=== PATIENT | female | born 1955 | race Two or more races ===

== ENCOUNTER 2017-04-15 10:12 | Outpatient (CLI) | payer MEDICARE, BC | END 2017-04-15 23:59 | disposition home or self-care (01) | LOC: WOU 10:12 | PROVIDERS: ATTEND Podiatrist Foot & Ankle Surgery | DX: I87.332 Chronic venous hypertension (idiopathic) with ulcer and inflammation of left lower extremity (principal); I87.2 Venous insufficiency (chronic) (peripheral); L97.323 Non-pressure chronic ulcer of left ankle with necrosis of muscle; R60.0 Localized edema; N18.6 End stage renal disease; Z99.2 Dependence on renal dialysis; J45.909 Unspecified asthma, uncomplicated; Z79.899 Other long term (current) drug therapy; M79.662 Pain in left lower leg | CPT/HCPCS: 11043; A6402 ==

== ENCOUNTER 2017-04-22 10:08 | Outpatient (CLI) | payer MEDICARE, BC | END 2017-04-22 23:59 | disposition home or self-care (01) | LOC: WOU 10:08 | PROVIDERS: ATTEND Podiatrist Foot & Ankle Surgery | DX: I87.332 Chronic venous hypertension (idiopathic) with ulcer and inflammation of left lower extremity (principal); L97.323 Non-pressure chronic ulcer of left ankle with necrosis of muscle; R60.0 Localized edema; N18.6 End stage renal disease; Z99.2 Dependence on renal dialysis; Z88.1 Allergy status to other antibiotic agents | CPT/HCPCS: 11043; A6402; 11042 ==

== ENCOUNTER 2017-04-29 10:30 | Outpatient (CLI) | payer MEDICARE, BC | END 2017-04-29 23:59 | disposition home or self-care (01) | LOC: WOU 10:30 | PROVIDERS: ATTEND Podiatrist Foot & Ankle Surgery | DX: I87.332 Chronic venous hypertension (idiopathic) with ulcer and inflammation of left lower extremity (principal); L97.321 Non-pressure chronic ulcer of left ankle limited to breakdown of skin; R60.0 Localized edema; M79.662 Pain in left lower leg; N18.6 End stage renal disease; Z99.2 Dependence on renal dialysis | CPT/HCPCS: 11042; A6402 ==

== ENCOUNTER 2017-05-06 10:10 | Outpatient (CLI) | payer MEDICARE, BC ==
[2017-05-06] MEDS ORDERED: HYDR-3024 PO (11:42)
[2017-05-06] MEDS ORDERED: MONT10TA22 PO (11:42)
[2017-05-06] MEDS ORDERED: CALC0.5C2 PO (11:42)
[2017-05-06] MEDS ORDERED: FOLI0.8T23 PO (11:42)
[2017-05-06] MEDS ORDERED: FLUT1DIS3 IH (11:42)
[2017-05-06] MEDS ORDERED: CARV25TA2 PO (11:42)
[2017-05-06] MEDS ORDERED: COMBIVENT INH (11:42)
[2017-05-06] MEDS ORDERED: SEVE800T8 PO (11:43)
== END 2017-05-06 23:59 | disposition home or self-care (01) ==
LOC: WOU 10:10
PROVIDERS: ATTEND Podiatrist Foot & Ankle Surgery
DX: I87.332 Chronic venous hypertension (idiopathic) with ulcer and inflammation of left lower extremity (principal); L97.321 Non-pressure chronic ulcer of left ankle limited to breakdown of skin; N18.6 End stage renal disease; Z99.2 Dependence on renal dialysis; R11.0 Nausea; R60.0 Localized edema; M79.662 Pain in left lower leg; R00.0 Tachycardia, unspecified
CPT/HCPCS: A6402; G0463

== ENCOUNTER 2017-05-06 10:50 | Inpatient (IN) | payer MEDICARE, BC ==
[2017-05-06] VITALS: BP 106/70
[~2017-05-06] VITALS: Ht 160 cm; Wt 80.7 kg
--- NOTE | 2017-05-06 11:20 | NUR ---
PATIENT BIB , C/O FEVER AND LEFT FOOT SWELLING. PATIENT IS A/OX 4. BREATHING EVEN AND UNLABORED. NO SOB. VITALS STABLE. SAFETY AND COMFORT MEASURES IN PLACE. AWAITING MD ORDERS.
[2017-05-06] MEDS ORDERED: CEFTRIAXONE 1GM BAG (ER ONLY) 1 GM/50 ML PIGGYBACK IV ONE (11:30)
[2017-05-06] MEDS ORDERED: VANCOMYCIN 1 GM in IV D5W 250 ML IV ONE (11:30)
[2017-05-06] MEDS ORDERED: ACETAMINOPHEN ES 500 MG TABLET PO ONE (11:30)
[2017-05-06] MEDS ORDERED: IV NS 0.9% 1,000 ML BAG IV ONE ×2 (11:30→13:00)
[2017-05-06] MEDS ORDERED: ACETAMINOPHEN ES 500 MG TABLET ONE (11:35)
[2017-05-06] MEDS ORDERED: CALC0.5C2 PO (11:42)
[2017-05-06] MEDS ORDERED: FLUT1DIS3 IH (11:42)
[2017-05-06] MEDS ORDERED: COMBIVENT INH (11:42)
[2017-05-06] MEDS ORDERED: CARV25TA2 PO (11:42)
[2017-05-06] MEDS ORDERED: MONT10TA22 PO (11:42)
[2017-05-06] MEDS ORDERED: HYDR-3024 PO (11:42)
[2017-05-06] MEDS ORDERED: FOLI0.8T23 PO (11:42)
[2017-05-06] MEDS ORDERED: SEVE800T8 PO (11:43)
--- NOTE | 2017-05-06 12:10 | NUR ---
NEW IV STARTED ON RIGHT HAND, 20 G. BLOOD DRAWN AND SENT TO LAB.
[2017-05-06] MEDS ORDERED: CEFTRIAXONE 1GM BAG (ER ONLY) 50 ML IV ONE (12:22)
[2017-05-06 12:31] LABS: BASOPHILS # (AUTO) 0.1 /CMM (0.0-0.2); BASOPHILS % (AUTO) 0.4 % (0.0-2.0); EOSINOPHILS # (AUTO) 0.2 /CMM (0.0-0.7); HEMATOCRIT 29 % (33-45); HEMOGLOBIN 9.7 g/dL (11.5-14.8); LYMPHOCYTES # (AUTO) 0.5 /CMM (0.8-4.8); MEAN CORPUSCULAR HEMOGLOBIN 33 PG (26.0-33.0); MEAN CORPUSCULAR HGB CONC 34 g/dl (31.0-36.0); MEAN CORPUSCULAR VOLUME 100 fL (82-100); MONOCYTES # (AUTO) 1.3 /CMM (0.1-1.30); MONOCYTES % (AUTO) 8.7 % (2.0-12.0); NEUTROPHILS # (AUTO) 13.2 /CMM (1.8-8.9); NEUTROPHILS % (AUTO) 86.9 % (43.0-81.0); PLATELET COUNT (AUTO) 375 /CMM (150-450); RDW COEFFICIENT OF VARIATION 16.8 (11.5-15.0); RED BLOOD CELL COUNT(AUTO) 2.91 MIL/uL (4.0-5.2); WHITE BLOOD COUNT (AUTO) 15.3 K/uL (4.3-11.0)
[2017-05-06 12:45] LABS: INR 1.02 (0.87-1.13); PROTHROMBIN TIME 10.6 SECS (9.5-12.7); SODIUM SERUM 131 mmol/L (136-145)
[2017-05-06 12:46] LABS: CARBON DIOXIDE 24 mmol/L (21-32); CHLORIDE 95 mmol/L (98-107); GLUCOSE 127 mg/dL (74-106); POTASSIUM 2.8 mmol/L (3.5-5.1)
--- NOTE | 2017-05-06 12:47 | NUR ---
PATIENT DOES NOT PRODUCE URINE. MADE AWARE, OKAY TO CANCEL UA.
[2017-05-06 12:49] LABS: TROPONIN I < 0.017 ng/mL (0.00-0.056)
[2017-05-06 12:52] LABS: CALCIUM, SERUM 8.8 mg/dL (8.5-10.1)
[2017-05-06 12:53] LABS: ALANINE AMINOTRANSFERASE 24 U/L (12-78); ALBUMIN 2.6 g/dL (3.4-5.0); ALKALINE PHOSPHATASE 68 U/L (46-116); ASPARTATE AMINOTRANSFERASE 21 U/L (15-37); BILIRUBIN,DIRECT 0.1 mg/dL (0.0-0.2); BILIRUBIN,TOTAL 0.4 mg/dL (0.2-1.0); TOTAL PROTEIN, SERUM 6.3 g/dL (6.4-8.2)
[2017-05-06 12:54] LABS: UREA NITROGEN, BLOOD 95 mg/dL (7-18)
[2017-05-06] MEDS ORDERED: POTASSIUM CHLORIDE 20 MEQ TAB.PRT.SR PO ONE ×3 (13:16→13:30)
--- NOTE | 2017-05-06 13:20 | NUR ---
PER DR. FULTON, DO NOT ADMINISTER 2ND LITER OF NS.
--- NOTE | 2017-05-06 13:31 | NUR ---
PER DR. VALDIVIA, DO NOT ADMINISTERE SECOND ORDER OF POTASSIUM, DUPLICATE ORDER.
--- NOTE | 2017-05-06 13:40 | NUR ---
REPORT GIVEN TO BERT GUERRERO FOR ADMISSION. PATIENT TO BE ADMITTED TO ROOM 102.
--- NOTE | 2017-05-06 13:59 | NUR ---
PATIENT TRANSPORTED TO 102 VIA ACLS PROTOCOL.
[2017-05-06 14:00] VITALS: BP 111/70
--- NOTE | 2017-05-06 15:00 | NUR ---
RN NOTE RECEIVED PT ON BED, AOX4, CO HEADACHE, PT TACHYCARDIC, HR 111 BPM, BP 111/70 MMHG NO SOB, PT CLAIMS TO HAVE ASTHMA, IV ON R HAND, 20 G INTACT, PATENT, PT AMBULATORY WITH ASSIST, L LEG SWELLING AND LEFT ANKLE ULCER NOTED. LEFT LOWER QUADRANT PERITONEAL DIALYSIS ACCESS LINE NOTED UNDER THE DRESSING. DR ECHOLS CALLED FOR ADMITTING ORDERS. WILL MONITOR PT CLOSELY.
[2017-05-06 16:00] VITALS: BP 106/87
[2017-05-06] MEDS ORDERED: Z GUARD REMEDY 2 OZ OINT TP PRN (17:30)
[2017-05-06] MEDS ORDERED: ZOLPIDEM TARTRATE 5 MG TABLET PO PRN (17:30)
[2017-05-06] MEDS ORDERED: ONDANSETRON HCL/PF 4 MG/2 ML VIAL IVP PRN (17:30)
[2017-05-06] MEDS ORDERED: MAGNESIUM HYDROXIDE 30 ML UDC PO PRN (17:30)
[2017-05-06] MEDS ORDERED: EPOETIN ALFA (40,000 UNIT) 40,000 UNIT/ML VIAL SQ ONE (17:30)
[2017-05-06] MEDS: SEVELAMER CARBONATE 800 MG TABLET PO SCH (18:21)
[2017-05-06] MEDS: CALCITRIOL 0.25 MCG CAPSULE PO SCH (18:30)
[2017-05-06] MEDS ORDERED: FEE PK DOSING 1 MIN EA MC ONE (18:42)
--- NOTE | 2017-05-06 19:51 | NUR ---
RN NOTE RECEIVED PT ON BED, AOX4, PT TACHYCARDIC, HR 120 BPM, BP 132/70 MMHG NO SOB, PT CLAIMS TO HAVE ASTHMA, IV ON R HAND, 20 G INTACT, PATENT, PT AMBULATORY WITH ASSIST, L LEG SWELLING AND LEFT ANKLE ULCER NOTED. LEFT LOWER QUADRANT PERITONEAL DIALYSIS ACCESS LINE CONNECTED DIALYSIS MACHINE, WITH SPECIMEN FOR COLLECTION IN AM.
[2017-05-06 20:00] VITALS: BP_SYST 118; BP_SYST 137; BP_DIAS 74; BP_DIAS 88
[2017-05-06] MEDS ORDERED: EPOETIN ALFA (20,000 UNIT) 20,000 UNIT/ML VIAL SQ ONE (20:00)
[2017-05-06] MEDS: PIPERACILLIN /TAZOBACTAM 2.25 G in IV D5W 50 ML IV SCH (20:53)
[2017-05-06] MEDS: CARVEDILOL 12.5 MG TABLET PO SCH (20:55)
[2017-05-06] MEDS: MONTELUKAST SODIUM (10MG) 10 MG TABLET PO SCH (21:06)
[2017-05-06] MEDS: hydrOXYzine 10 MG TABLET PO PRN (21:06)
[2017-05-07] VITALS: BP 106/70
[2017-05-07] MEDS: ACETAMINOPHEN 325 MG TABLET PO PRN (03:50)
[2017-05-07 04:00] VITALS: BP 111/69
[2017-05-07] MEDS: PIPERACILLIN /TAZOBACTAM 2.25 G in IV D5W 50 ML IV SCH ×3 (05:38→21:16)
--- NOTE | 2017-05-07 06:25 | NUR ---
RN CLOSING NOTE ENDORSED PT ON BED, AOX4, PT TACHYCARDIC, HR 108 BPM, BP 111/69MMHG NO SOB, PT CLAIMS TO HAVE ASTHMA, IV ON R HAND, 20 G INTACT, PATENT, PT AMBULATORY WITH ASSIST, L LEG SWELLING AND LEFT ANKLE ULCER NOTED. LEFT LOWER QUADRANT PERITONEAL DIALYSIS ACCESS LINE , 4L DRAINED OUT BY SELF, WITH SPECIMEN FOR COLLECTION IN AM.
--- NOTE | 2017-05-07 07:05 | NUR ---
RN INITIAL NOTE PATIENT RESTING IN BED COMFORTABLY. EASILY AROUSED. ABLE TO MAKE NEEDS KNOWN. NO S/S OF PAIN OR DISCOMFORT. RESPIRATIONS ARE EVEN AND UNLABORED. NO S/S OF RESPIRATORY DISTRESS OR SOB. SATING WELL ON 2L NASAL CANULA. IV SITE, FLUSHED AND PATENT. SKIN IS WARM AND DRY TO TOUCH. SAFETY PRECAUTIONS IMPLEMENTED, BED IN LOCKED LOW POSITION WITH TWO SIDE RAILS UP. ISOLATION PRECAUTIONS OBSERVED. WILL MONITOR CLOSELY.
[2017-05-07 07:54] LABS: BASOPHILS % (AUTO) 0.3 % (0.0-2.0); EOSINOPHILS # (AUTO) 0.1 /CMM (0.0-0.7); EOSINOPHILS % (AUTO) 0.7 % (0.0-6.0); HEMATOCRIT 26 % (33-45); HEMOGLOBIN 8.9 g/dL (11.5-14.8); LYMPHOCYTES # (AUTO) 0.7 /CMM (0.8-4.8); LYMPHOCYTES % (AUTO) 5.9 % (20.0-44.0); MEAN CORPUSCULAR HEMOGLOBIN 34 PG (26.0-33.0); MEAN CORPUSCULAR HGB CONC 34 g/dl (31.0-36.0); MEAN CORPUSCULAR VOLUME 99 fL (82-100); MONOCYTES # (AUTO) 1.1 /CMM (0.1-1.30); MONOCYTES % (AUTO) 9.2 % (2.0-12.0); NEUTROPHILS # (AUTO) 10.1 /CMM (1.8-8.9); NEUTROPHILS % (AUTO) 83.9 % (43.0-81.0); PLATELET COUNT (AUTO) 294 /CMM (150-450); RDW COEFFICIENT OF VARIATION 17.5 (11.5-15.0); RED BLOOD CELL COUNT(AUTO) 2.62 MIL/uL (4.0-5.2)
[2017-05-07 08:00] VITALS: BP 97/63
[2017-05-07 08:21] LABS: CALCIUM, SERUM 8.5 mg/dL (8.5-10.1); MAGNESIUM 1.6 mg/dL (1.8-2.4); PHOSPHORUS 4.9 mg/dL (2.5-4.9); POTASSIUM 3.3 mmol/L (3.5-5.1)
[2017-05-07 08:26] LABS: CREATININE 9.1 mg/dL (0.6-1.3)
[2017-05-07] MEDS: SEVELAMER CARBONATE 800 MG TABLET PO SCH ×3 (08:31→17:15)
[2017-05-07] MEDS: CALCITRIOL 0.25 MCG CAPSULE PO SCH (08:31)
[2017-05-07] MEDS: VIT B CMPLX 3/FA/VIT C/BIOTIN 1 TAB TABLET PO SCH (08:32)
[2017-05-07] MEDS: CARVEDILOL 12.5 MG TABLET PO SCH ×2 (08:33→21:09)
[2017-05-07] MEDS: FLUTICASONE/VILANTEROL 1 EACH BLST.W.DEV IH SCH (08:33)
[2017-05-07 12:00] VITALS: BP 106/63
[2017-05-07] MEDS ORDERED: EPOETIN ALFA (20,000 UNIT) 20,000 UNIT/ML VIAL SQ ONE (12:30)
[2017-05-07] MEDS ORDERED: DIPHENHYDRAMINE HCL 12.5 MG/5 ML UDC PO PRN (13:00)
[2017-05-07] MEDS ORDERED: VANCOMYCIN 500 MG in IV D5W 100 ML IV PRN (13:30)
[2017-05-07] MEDS: SOD FERRIC GLUC 125 MG in IV NS 0.9% 100 ML IV SCH (13:59)
[2017-05-07 16:00] VITALS: BP 115/67
[2017-05-07] MEDS: LACTOBACILLUS RHAMNOSUS GG 1 EACH CAP.SPRINK PO SCH (17:15)
[2017-05-07] MEDS: COMBIVENT INH SCH ×2 (17:15→21:11)
--- NOTE | 2017-05-07 19:15 | NUR ---
RN CLOSING NOTE ALL MD ORDERS CARRIED OUT. PATIENT KEPT CLEAN AND DRY. SAFETY PRECAUTIONS IN PLACE AT ALL TIMES. WILL GIVE REPORT TO PM RN FOR CHIDI.
[2017-05-07 20:00] VITALS: BP 112/68
--- NOTE | 2017-05-07 20:15 | NUR ---
RN INITIAL NOTE RECEIVED PATIENT RESTING IN BED COMFORTABLY. EASILY AROUSED. ABLE TO MAKE NEEDS KNOWN. NO S/S OF PAIN OR DISCOMFORT. RESPIRATIONS ARE EVEN AND UNLABORED. NO S/S OF RESPIRATORY DISTRESS OR SOB. SATING WELL ON 2L NASAL CANULA. IV SITE, FLUSHED AND PATENT. SKIN IS WARM AND DRY TO TOUCH. SAFETY PRECAUTIONS IMPLEMENTED, BED IN LOCKED LOW POSITION WITH TWO SIDE RAILS UP. ISOLATION PRECAUTIONS OBSERVED. WILL MONITOR CLOSELY
[2017-05-07] MEDS: hydrOXYzine 10 MG TABLET PO PRN (21:09)
[2017-05-07] MEDS: MONTELUKAST SODIUM (10MG) 10 MG TABLET PO SCH (21:09)
[2017-05-08] VITALS: BP 112/68
[2017-05-08 04:00] VITALS: BP 106/70
[2017-05-08] MEDS: PIPERACILLIN /TAZOBACTAM 2.25 G in IV D5W 50 ML IV SCH ×3 (04:53→21:15)
--- NOTE | 2017-05-08 06:15 | NUR ---
RN CLOSING NOTE ENDORSED PATIENT RESTING IN BED COMFORTABLY. EASILY AROUSED. ABLE TO MAKE NEEDS KNOWN. NO S/S OF PAIN OR DISCOMFORT. RESPIRATIONS ARE EVEN AND UNLABORED. NO S/S OF RESPIRATORY DISTRESS OR SOB. SATING WELL ON 2L NASAL CANULA. IV SITE, FLUSHED AND PATENT. SKIN IS WARM AND DRY TO TOUCH. SAFETY PRECAUTIONS IMPLEMENTED, BED IN LOCKED LOW POSITION WITH TWO SIDE RAILS UP. ISOLATION PRECAUTIONS OBSERVED. WILL MONITOR CLOSELY
[2017-05-08 06:41] LABS: BASOPHILS % (AUTO) 0.1 % (0.0-2.0); EOSINOPHILS # (AUTO) 0.1 /CMM (0.0-0.7); EOSINOPHILS % (AUTO) 1.5 % (0.0-6.0); HEMATOCRIT 24 % (33-45); HEMOGLOBIN 7.7 g/dL (11.5-14.8); LYMPHOCYTES # (AUTO) 0.5 /CMM (0.8-4.8); LYMPHOCYTES % (AUTO) 6.3 % (20.0-44.0); MEAN CORPUSCULAR HEMOGLOBIN 33 PG (26.0-33.0); MEAN CORPUSCULAR HGB CONC 32 g/dl (31.0-36.0); MEAN CORPUSCULAR VOLUME 102 fL (82-100); MONOCYTES # (AUTO) 0.9 /CMM (0.1-1.30); MONOCYTES % (AUTO) 10.7 % (2.0-12.0); NEUTROPHILS % (AUTO) 81.4 % (43.0-81.0); PLATELET COUNT (AUTO) 279 /CMM (150-450); RDW COEFFICIENT OF VARIATION 18.1 (11.5-15.0); RED BLOOD CELL COUNT(AUTO) 2.34 MIL/uL (4.0-5.2); WHITE BLOOD COUNT (AUTO) 8.6 K/uL (4.3-11.0)
[2017-05-08] MEDS: hydrOXYzine 10 MG TABLET PO PRN ×2 (06:49→22:33)
[2017-05-08 08:00] VITALS: BP 116/69
[2017-05-08] MEDS: SEVELAMER CARBONATE 800 MG TABLET PO SCH ×3 (08:47→17:21)
[2017-05-08] MEDS: CALCITRIOL 0.25 MCG CAPSULE PO SCH (08:48)
[2017-05-08] MEDS: VIT B CMPLX 3/FA/VIT C/BIOTIN 1 TAB TABLET PO SCH (08:48)
[2017-05-08] MEDS: FLUTICASONE/VILANTEROL 1 EACH BLST.W.DEV IH SCH ×2 (08:49→08:52)
[2017-05-08] MEDS: CARVEDILOL 12.5 MG TABLET PO SCH ×2 (08:49→21:23)
[2017-05-08] MEDS: LACTOBACILLUS RHAMNOSUS GG 1 EACH CAP.SPRINK PO SCH ×2 (08:50→17:21)
[2017-05-08] MEDS: COMBIVENT INH SCH ×4 (08:50→21:19)
[2017-05-08 10:14] LABS: ALBUMIN 2.5 g/dL (3.4-5.0); BILIRUBIN,TOTAL 0.3 mg/dL (0.2-1.0); CALCIUM, SERUM 8.6 mg/dL (8.5-10.1); MAGNESIUM 1.6 mg/dL (1.8-2.4); POTASSIUM 2.9 mmol/L (3.5-5.1)
--- NOTE | 2017-05-08 11:37 | NUR ---
Paged Dr. Beard and informed of k and mag am level. orders given.
[2017-05-08] MEDS ORDERED: MAGNESIUM OXIDE 400 MG TABLET PO ONE (12:00)
[2017-05-08] MEDS ORDERED: POTASSIUM CHLORIDE 20 MEQ TAB.PRT.SR PO ONE (12:00)
[2017-05-08] MEDS: ACETAMINOPHEN 325 MG TABLET PO PRN (12:51)
[2017-05-08] MEDS: SOD FERRIC GLUC 125 MG in IV NS 0.9% 100 ML IV SCH (15:39)
[2017-05-08 16:00] VITALS: BP 96/57
[2017-05-08 20:00] VITALS: BP 125/73
--- NOTE | 2017-05-08 20:30 | NUR ---
PATROL SUPERVISOR: NOTED MULT. OLD OPEN "BLISTER-LIKE" ON RIGHT BUTTOCKS, PINKISH RED IN COLOR. NO C/O PAIN, NO ACTIVE BLEEDING. PER PATIENT, SHE'S HAD IT FOR AWHILE AND BEEN SEEING A IP TECHNOLOGY TRANSACTIONS ATTORNEY. CHARGE NURSE CRYSTAL MADE AWARE. OBTAINED ORDER FROM MD FOR WOUND CONSULT.
[2017-05-08] MEDS: MONTELUKAST SODIUM (10MG) 10 MG TABLET PO SCH (21:19)
[2017-05-09] MEDS: ACETAMINOPHEN 325 MG TABLET PO PRN (01:54)
[2017-05-09 04:00] VITALS: BP 105/68
[2017-05-09] MEDS: PIPERACILLIN /TAZOBACTAM 2.25 G in IV D5W 50 ML IV SCH ×3 (05:44→21:40)
--- NOTE | 2017-05-09 06:25 | NUR ---
MS RN: PT REMAINED A/O X3. ON R/A WT NO ACUTE DISTRESS. GIVEN TYLENOL FOR HEADACHE DURING THE SHIFT (11/20) WT GOOD EFFECT AFTER AN HOUR (0). ONGOING PERITONEAL DIALYSIS. NO ADVERSE CHANGES NOTED ON LEFT LOWER LEG CELLULITIS. VS WITHIN HER BASELINE. SAFETY PRECAUTION NOTED AT ALL TIMES.
[2017-05-09 06:43] LABS: CALCIUM, SERUM 8.5 mg/dL (8.5-10.1)
--- NOTE | 2017-05-09 06:46 | NUR ---
MS RN: RECEIVED K=2.8. PT CURRENTLY UNDERGOING PERITONEAL DIALYSIS. LEFT A MSG. TO MD. AWAITING TO CALL BACK. WILL ENDORSE TO DAY SHIFT TO FF-UP. CRYSTAL CHARGE NURSE MADE AWARE.
[2017-05-09 06:50] LABS: CREATININE 8.5 mg/dL (0.6-1.3); POTASSIUM 2.8 mmol/L (3.5-5.1)
[2017-05-09 08:00] VITALS: BP 102/64
--- NOTE | 2017-05-09 08:00 | NUR ---
MS1/RN AM SHIFT INITIAL NOTE RECEIVED PT AWAKE SITTING IN BED, A/O X 4, PT DENIES ANY SYMPTOMS OR PAIN. NO FEVER, NO ACUTE CHANGE OF CONDITION NOTED. PT WITH ON GOING PD TX PER PT STARTED AROUND 10:00PM LAST NIGHT, IV SITE FLUSHED PATENT WITH NO S/S OF INFECTION, SL. SCHEDULED AM MEDS TO BE GIVEN. VERIFIED WITH PHARMACY THAT PT WILL RECEIVE VANCOMYCIN 1 GM IV POST PD TX. CL WITHIN REACHED AND SAFETY MAINTAINED. ON GOING MONITORING.
[2017-05-09] MEDS ORDERED: POTASSIUM CHLORIDE 20 MEQ TAB.PRT.SR PO ONE (09:00)
[2017-05-09] MEDS: SEVELAMER CARBONATE 800 MG TABLET PO SCH ×3 (09:33→17:20)
[2017-05-09] MEDS: LACTOBACILLUS RHAMNOSUS GG 1 EACH CAP.SPRINK PO SCH ×2 (09:33→17:20)
[2017-05-09] MEDS: VIT B CMPLX 3/FA/VIT C/BIOTIN 1 TAB TABLET PO SCH (09:33)
[2017-05-09] MEDS: CARVEDILOL 12.5 MG TABLET PO SCH (09:34)
[2017-05-09] MEDS: FLUTICASONE/VILANTEROL 1 EACH BLST.W.DEV IH SCH (09:34)
[2017-05-09] MEDS: COMBIVENT INH SCH ×4 (09:35→21:44)
[2017-05-09 09:50] VITALS: BP 102/64
[2017-05-09] MEDS ORDERED: VANCOMYCIN 1 GM in IV D5W 250 ML IV ONE (10:00)
[2017-05-09] MEDS ORDERED: IV NS 0.9% 250 ML IV ONE (11:00)
--- NOTE | 2017-05-09 12:00 | NUR ---
MS1/RN NOON ROUNDS NO CHANGE OF CONDITION. MONITORING CONTINUED.
[2017-05-09] MEDS: SOD FERRIC GLUC 125 MG in IV NS 0.9% 100 ML IV SCH (13:29)
--- NOTE | 2017-05-09 17:30 | NUR ---
MS1/RN AFTERNOON NOON ROUNDS WOUND CARE PROVIDED. NO CHANGE OF CONDITION. MONITORING CONTINUED.
--- NOTE | 2017-05-09 19:33 | NUR ---
MS1/RN AM SHIFT END NOTES NO ACUTE CHANGE OF CONDITION NOTED DURING THE SHIFT. ALL NEEDS MET. PT ENDORSED TO PM NURSE TO CONTINUE CARE. CL WITHIN REACHED AND SAFETY MAINTAINED.
[2017-05-09 20:00] VITALS: BP 119/86
--- NOTE | 2017-05-09 20:00 | NUR ---
MS RN NOTE PT IN BED PACING IN HER ROOM, A/O X 4, NO SOB, NO DISTRESS OR DISCOMFORT NOTED. DENIES PAIN. RT HAND #22 H/L INTACT AND PATENT. LLQ ABD PERITONEAL DIALYSIS CATH INTACT. ALL NEEDS ATTENDED. SIDE RAILS UP X 2 AND CALL LIGHT WITHIN REACH. VSS. CONTINUE TO MONITOR HER.
[2017-05-09] MEDS: hydrOXYzine 10 MG TABLET PO PRN (21:41)
[2017-05-09] MEDS: HYDROGEL DRESSING 90 GM TUBE TP SCH (21:41)
[2017-05-09] MEDS: MONTELUKAST SODIUM (10MG) 10 MG TABLET PO SCH (21:41)
[2017-05-10] MEDS: CARVEDILOL 12.5 MG TABLET PO SCH ×3 (00:04→21:38)
[2017-05-10 04:00] VITALS: BP 106/71
[2017-05-10] MEDS: PIPERACILLIN /TAZOBACTAM 2.25 G in IV D5W 50 ML IV SCH ×3 (05:20→21:37)
--- NOTE | 2017-05-10 06:38 | NUR ---
MS RN NOTE PT IN BED ASLEEP, AROUSABLE. NO DISTRESS OR DISCOMFORT NOTED. DENIES PAIN. PT CONTINUES WITH PD NOTED 414 ML OUTPUT BUT PT STATES WAIT UNTIL IT FINISH FOR THE OUTPUT. SIDE RAILS UP X 2 AND CALL LIGHT WITHIN REACH. WILL ENDORSE TO DAY SHIFT NURSE FOR CONTINUE TO CARE.
[2017-05-10 06:40] LABS: BASOPHILS % (AUTO) 0.3 % (0.0-2.0); EOSINOPHILS # (AUTO) 0.4 /CMM (0.0-0.7); EOSINOPHILS % (AUTO) 5.2 % (0.0-6.0); HEMATOCRIT 26 % (33-45); HEMOGLOBIN 8.7 g/dL (11.5-14.8); LYMPHOCYTES # (AUTO) 0.6 /CMM (0.8-4.8); LYMPHOCYTES % (AUTO) 7.7 % (20.0-44.0); MEAN CORPUSCULAR HEMOGLOBIN 33 PG (26.0-33.0); MEAN CORPUSCULAR HGB CONC 34 g/dl (31.0-36.0); MEAN CORPUSCULAR VOLUME 99 fL (82-100); MONOCYTES # (AUTO) 1.2 /CMM (0.1-1.30); MONOCYTES % (AUTO) 14.6 % (2.0-12.0); NEUTROPHILS # (AUTO) 5.7 /CMM (1.8-8.9); NEUTROPHILS % (AUTO) 72.2 % (43.0-81.0); PLATELET COUNT (AUTO) 299 /CMM (150-450); RDW COEFFICIENT OF VARIATION 17.4 (11.5-15.0); RED BLOOD CELL COUNT(AUTO) 2.62 MIL/uL (4.0-5.2); WHITE BLOOD COUNT (AUTO) 7.9 K/uL (4.3-11.0)
[2017-05-10 06:52] LABS: ALBUMIN 2.1 g/dL (3.4-5.0); BILIRUBIN,TOTAL 0.3 mg/dL (0.2-1.0); CALCIUM, SERUM 8.9 mg/dL (8.5-10.1); MAGNESIUM 1.4 mg/dL (1.8-2.4); PHOSPHORUS 4.5 mg/dL (2.5-4.9); TOTAL PROTEIN, SERUM 6.1 g/dL (6.4-8.2)
[2017-05-10 06:54] LABS: CREATININE 7.8 mg/dL (0.6-1.3)
[2017-05-10 07:31] LABS: POTASSIUM 2.6 mmol/L (3.5-5.1)
[2017-05-10 08:00] VITALS: BP 124/77
[2017-05-10 08:01] VITALS: BP 124/77
--- NOTE | 2017-05-10 09:45 | NUR ---
WOUND CARE CONSULT: PT NOT SEEN YET FOR SKIN ASSESSMENT DUE TO PT HAVING PROCEDURE AT THIS TIME. PT FOLLOWED BY MAGAZINE WORKER. PT IS AMBULATORY.
[2017-05-10] MEDS: FLUTICASONE/VILANTEROL 1 EACH BLST.W.DEV IH SCH (10:04)
[2017-05-10] MEDS: HYDROGEL DRESSING 90 GM TUBE TP SCH ×2 (10:05→21:40)
[2017-05-10] MEDS: SEVELAMER CARBONATE 800 MG TABLET PO SCH ×3 (10:06→18:16)
[2017-05-10] MEDS: VIT B CMPLX 3/FA/VIT C/BIOTIN 1 TAB TABLET PO SCH (10:07)
[2017-05-10] MEDS: LACTOBACILLUS RHAMNOSUS GG 1 EACH CAP.SPRINK PO SCH ×2 (10:07→18:17)
[2017-05-10] MEDS: CALCITRIOL 0.25 MCG CAPSULE PO SCH (10:08)
[2017-05-10] MEDS: COMBIVENT INH SCH ×4 (10:09→21:39)
[2017-05-10] MEDS ORDERED: POTASSIUM CHLORIDE 20 MEQ TAB.PRT.SR PO ONE (12:30)
[2017-05-10] MEDS ORDERED: diphenhydrAMINE HCL 50 MG/ML VIAL IV PRN (12:30)
--- NOTE | 2017-05-10 12:42 | NUR ---
WOUND CARE CONSULT: PT PRESENTS WITH 3+ PITTING EDEMA TO LEFT LOWER LEG AND FOOT WITH SOME REDNESS AND OPEN ULCER TO LEFT ANKLE AREA, PRESENT ON ADMISSION. PT FOLLOWED BY DPM AND WOUND CLINIC. DEFER TO DPM. PT IS AMBULATORY AND CONTINENT. HEALED SCARS NOTED TO BUTTOCKS. WILL SEE PRN. JACOBSEN IN AGREEMENT WITH PLAN OF CARE. Addendum: 05/10/17 at 1244 by TRICIA MCCALL WNDNU Amended: Links added.
[2017-05-10] MEDS ORDERED: VANCOMYCIN 1 GM in IV D5W 250 ML IV PRN (14:00)
[2017-05-10] MEDS: ACETAMINOPHEN 325 MG TABLET PO PRN (15:05)
[2017-05-10] MEDS: SOD FERRIC GLUC 125 MG in IV NS 0.9% 100 ML IV SCH (15:05)
[2017-05-10 16:00] VITALS: BP 133/77
[2017-05-10 20:00] VITALS: BP 122/70
--- NOTE | 2017-05-10 20:00 | NUR ---
MS RN NOTE PT IN BED AWAKE. A/O X 4, NO SOB, NO DISTRESS OR DISCOMFORT NOTED. DENIES PAIN. PT AMBULATE WITH FWW SLOW STEADY GAIT. DRESSING ON LT ANKLE WOUND I/C/D. RT HAND #22 G H/L INTACT AND PATENT. LLQ ABD WITH PD CATH INTACT. ALL NEEDS ATTENDED. SIDE RAILS UP X 2 AND CALL LIGHT WITHIN REACH. VSS. CONTINUE TO MONITOR HER.
[2017-05-10] MEDS: MONTELUKAST SODIUM (10MG) 10 MG TABLET PO SCH (21:39)
[2017-05-10] MEDS: hydrOXYzine 10 MG TABLET PO PRN (22:21)
[2017-05-11 04:00] VITALS: BP 122/69
--- NOTE | 2017-05-11 04:30 | NUR ---
MS RN NOTE PERITONEAL DIALYSIS CONTINUES. PT ABLE TO SET IT UP BY HERSELF. NO DISTRESS OR DISCOMFORT NOTED.
[2017-05-11] MEDS: PIPERACILLIN /TAZOBACTAM 2.25 G in IV D5W 50 ML IV SCH ×2 (05:54→13:14)
--- NOTE | 2017-05-11 06:42 | NUR ---
MS RN NOTE PT IN BED ASLEEP, EASILY AROUSBLE. NO DISTRESS OR DISCOMFORT NOTED. DENIES PAIN. PERITONEAL DIALYSIS IN PROGRESS. H/L RT HAND INTACT AND PATENT. ALL NEEDS ATTENDED. SIDE RAILS UP X 2 AND CALL LIGHT WITHIN REACH. WILL ENDORSE TO DAY SHIFT NURSE FOR CONTINUE TO CARE.
[2017-05-11 06:54] LABS: CREATININE 7.5 mg/dL (0.6-1.3); POTASSIUM 2.8 mmol/L (3.5-5.1)
[2017-05-11 08:00] VITALS: BP 126/77
[2017-05-11] MEDS ORDERED: Magnesium 1GM/D5W 100ML PREMIX 100 ML IV SCH (08:30)
[2017-05-11] MEDS ORDERED: POTASSIUM CHLORIDE 20 MEQ TAB.PRT.SR PO ONE (08:30)
[2017-05-11] MEDS: CARVEDILOL 12.5 MG TABLET PO SCH (08:33)
[2017-05-11] MEDS: LACTOBACILLUS RHAMNOSUS GG 1 EACH CAP.SPRINK PO SCH (08:33)
[2017-05-11] MEDS: SEVELAMER CARBONATE 800 MG TABLET PO SCH ×2 (08:33→13:13)
[2017-05-11] MEDS: VIT B CMPLX 3/FA/VIT C/BIOTIN 1 TAB TABLET PO SCH (08:33)
[2017-05-11] MEDS: FLUTICASONE/VILANTEROL 1 EACH BLST.W.DEV IH SCH (08:46)
[2017-05-11] MEDS: COMBIVENT INH SCH ×2 (08:46→13:19)
[2017-05-11] MEDS: HYDROGEL DRESSING 90 GM TUBE TP SCH (09:00)
[2017-05-11 13:23] LABS: MAGNESIUM 1.9 mg/dL (1.8-2.4); POTASSIUM 3.7 mmol/L (3.5-5.1)
[2017-05-11] MEDS ORDERED: ALLA266C2 TP (13:29)
[2017-05-11] MEDS: SOD FERRIC GLUC 125 MG in IV NS 0.9% 100 ML IV SCH (14:30)
[2017-05-11 16:00] VITALS: BP 136/82
--- NOTE | 2017-05-11 17:42 | NUR ---
PT D/C HOME WITH MEDICATIONS AND BELONGINGS .ALL D/C INSTRUCTIONS EXPLAINED .ALL BELONGINGS GIVEN TO PATIENT. PATIENT WAS ANXIOUS TO LEAVE AND REFUSED SKIN ASSESMENT PHOTOS UPON DISCHARGE.ALL M.D ORDERS NOTED AND CARRIED OUT
[2017-05-12] MEDS ORDERED: PROSOURCE / PROSTAT (PYXIS) 30 ML UDC GT SCH (09:00)
== END 2017-05-11 17:31 | disposition home health service (06) | DRG 602 ==
LOC: ER 10:50 → MEDSG1 13:31 → TELE1 19:44 → MEDSG1 05-07 16:03
PROVIDERS: ADMIT Internal Medicine Nephrology; ATTEND Internal Medicine Nephrology
PROC: 3E1M39Z Irrigation of Peritoneal Cavity using Dialysate, Percutaneous Approach (ICD-10-PCS; principal; 2017-05-07)
DX: L03.116 Cellulitis of left lower limb (principal); N18.6 End stage renal disease; I12.0 Hypertensive chronic kidney disease with stage 5 chronic kidney disease or end stage renal disease; L97.329 Non-pressure chronic ulcer of left ankle with unspecified severity; Z99.2 Dependence on renal dialysis; J45.909 Unspecified asthma, uncomplicated; D63.8 Anemia in other chronic diseases classified elsewhere; E87.6 Hypokalemia; L29.9 Pruritus, unspecified
CPT/HCPCS: 36415; 71010-TC; 73630-TC; 80048-TC; 80053-TC; 80061-TC; 80076-TC; 80202-TC; 82728-TC; 83540-TC; 83605-TC; 83735-TC; 84100-TC; 84132-TC; 84484-TC; 85025-TC; 85730-TC; 87040-TC; 87070-TC; 87081-TC; 90935-TC; 93971-TC; A4606; A6248; A6402; A6403; J0696; J0885; J1200; J2405; J2543; J2916; J3370; J3475; J7030; J7050; J7060; Q0163; Q0177; Z7610

== ENCOUNTER 2017-05-20 09:42 | Outpatient (CLI) | payer MEDICARE, BC ==
[~2017-05-20 09:42] MED LIST: ALLA266C2 TP; CALC0.5C2 PO; CARV25TA2 PO; COMBIVENT INH; FLUT1DIS3 IH; FOLI0.8T23 PO; HYDR-3024 PO; MONT10TA22 PO; SEVE800T8 PO
== END 2017-05-20 23:59 | disposition home or self-care (01) ==
LOC: WOU 09:42
PROVIDERS: ATTEND Podiatrist Foot & Ankle Surgery
DX: I87.332 Chronic venous hypertension (idiopathic) with ulcer and inflammation of left lower extremity (principal); L97.321 Non-pressure chronic ulcer of left ankle limited to breakdown of skin; R60.0 Localized edema; M79.662 Pain in left lower leg; L03.116 Cellulitis of left lower limb; N18.6 End stage renal disease; Z99.2 Dependence on renal dialysis
CPT/HCPCS: 11042; A6209; A6402

== ENCOUNTER 2017-05-27 10:30 | Outpatient (CLI) | payer MEDICARE, BC | END 2017-05-27 23:59 | disposition home or self-care (01) | LOC: WOU 10:30 | PROVIDERS: ATTEND Podiatrist Foot & Ankle Surgery | DX: I87.312 Chronic venous hypertension (idiopathic) with ulcer of left lower extremity (principal); L97.321 Non-pressure chronic ulcer of left ankle limited to breakdown of skin; Z88.1 Allergy status to other antibiotic agents; N18.6 End stage renal disease; Z99.2 Dependence on renal dialysis; J45.909 Unspecified asthma, uncomplicated; Z79.51 Long term (current) use of inhaled steroids | CPT/HCPCS: 11042; A6207; A6209; A6402 ×2 ==

== ENCOUNTER 2017-06-10 10:00 | Outpatient (CLI) | payer MEDICARE, BC | END 2017-06-10 23:59 | disposition home or self-care (01) | LOC: WOU 10:00 | PROVIDERS: ATTEND Podiatrist Foot & Ankle Surgery | DX: I87.312 Chronic venous hypertension (idiopathic) with ulcer of left lower extremity (principal); L97.321 Non-pressure chronic ulcer of left ankle limited to breakdown of skin; N18.6 End stage renal disease; Z99.2 Dependence on renal dialysis | CPT/HCPCS: 11042; A6209; A6402 ==

== ENCOUNTER 2017-06-17 10:00 | Outpatient (CLI) | payer MEDICARE, BC | END 2017-06-17 23:59 | disposition home or self-care (01) | LOC: WOU 10:00 | PROVIDERS: ATTEND Podiatrist Foot & Ankle Surgery | DX: I87.312 Chronic venous hypertension (idiopathic) with ulcer of left lower extremity (principal); L97.321 Non-pressure chronic ulcer of left ankle limited to breakdown of skin; N18.6 End stage renal disease; Z99.2 Dependence on renal dialysis; J45.909 Unspecified asthma, uncomplicated; Z79.51 Long term (current) use of inhaled steroids | CPT/HCPCS: 11042; A6209; A6402 ==

== ENCOUNTER 2017-06-22 11:00 | Outpatient (CLI) | payer MEDICARE, BC | END 2017-06-22 23:59 | disposition home or self-care (01) | LOC: WOU 11:00 | PROVIDERS: ATTEND Podiatrist Foot & Ankle Surgery | DX: L98.499 Non-pressure chronic ulcer of skin of other sites with unspecified severity (principal) ==

== ENCOUNTER 2017-06-24 09:20 | Outpatient (CLI) | payer MEDICARE, BC | END 2017-06-24 23:59 | disposition home or self-care (01) | LOC: WOU 09:20 | PROVIDERS: ATTEND Podiatrist Foot & Ankle Surgery | DX: I87.312 Chronic venous hypertension (idiopathic) with ulcer of left lower extremity (principal); L97.321 Non-pressure chronic ulcer of left ankle limited to breakdown of skin; N18.6 End stage renal disease; Z99.2 Dependence on renal dialysis | CPT/HCPCS: 11042; A6209; A6402 ==

== ENCOUNTER 2017-07-01 10:25 | Outpatient (CLI) | payer MEDICARE, BC | END 2017-07-01 23:59 | disposition home or self-care (01) | LOC: WOU 10:25 | PROVIDERS: ATTEND Podiatrist Foot & Ankle Surgery | DX: I87.2 Venous insufficiency (chronic) (peripheral) (principal); N18.6 End stage renal disease; Z99.2 Dependence on renal dialysis | CPT/HCPCS: A6402; G0463 ==

== ENCOUNTER 2017-07-15 10:00 | Outpatient (CLI) | payer MEDICARE, BC | END 2017-07-15 23:59 | disposition home or self-care (01) | LOC: WOU 10:00 | PROVIDERS: ATTEND Podiatrist Foot & Ankle Surgery | DX: S91.002A Unspecified open wound, left ankle, initial encounter (principal); X58.XXXA Exposure to other specified factors, initial encounter; Y92.89 Other specified places as the place of occurrence of the external cause; Y99.8 Other external cause status; I87.2 Venous insufficiency (chronic) (peripheral); N18.6 End stage renal disease; Z99.2 Dependence on renal dialysis | CPT/HCPCS: A6402; G0463 ==

== ENCOUNTER 2017-07-22 10:15 | Outpatient (CLI) | payer MEDICARE, BC | END 2017-07-22 23:59 | disposition home or self-care (01) | LOC: WOU 10:15 | PROVIDERS: ATTEND Podiatrist Foot & Ankle Surgery | DX: Z09 Encounter for follow-up examination after completed treatment for conditions other than malignant neoplasm (principal); I87.2 Venous insufficiency (chronic) (peripheral); N18.6 End stage renal disease; Z99.2 Dependence on renal dialysis | CPT/HCPCS: G0463 ==

== ENCOUNTER 2017-08-19 10:30 | Outpatient (CLI) | payer MEDICARE, BC | END 2017-08-19 23:59 | disposition home or self-care (01) | LOC: WOU 10:30 | PROVIDERS: ATTEND Podiatrist Foot & Ankle Surgery | DX: Z09 Encounter for follow-up examination after completed treatment for conditions other than malignant neoplasm (principal); I87.2 Venous insufficiency (chronic) (peripheral); N18.6 End stage renal disease; Z99.2 Dependence on renal dialysis | CPT/HCPCS: G0463 ==